=== PATIENT | female | born 1970 | race Caucasian/White ===

== ENCOUNTER 2020-02-01 14:08 | Emergency (ER) | payer SELFPAY ==
--- NOTE | 2020-02-01 14:21 | NUR ---
Called pt for triage, no answer
--- NOTE | 2020-02-01 14:30 | NUR ---
Called pt for triage, no answer
--- NOTE | 2020-02-01 14:37 | NUR ---
Called pt for triage, no answer
== END 2020-02-01 14:37 | disposition left against medical advice (07) ==
LOC: SED 14:08
DX: R07.89 Other chest pain (principal); R06.02 Shortness of breath; Z53.21 Procedure and treatment not carried out due to patient leaving prior to being seen by health care provider